=== PATIENT | male | born 1960 ===

== ENCOUNTER 2022-01-20 21:38 | Observation (INO) | payer BC ==
--- NOTE | 2022-01-20 23:53 | P.HP ---
Certification for Inpatient Patient admitted to: Inpatient With expected LOS: <2 Midnights Patient will require the following post-hospital care: None Practitioner: I am a practitioner with admitting privileges, knowledge of patient current condition, hospital course, and medical plan of care. Services: Services provided to patient in accordance with Admission requirements found in Title 42 Section 412.3 of the Code of Federal Regulations Patient History Date of Service: 01/21/22 Primary Care Provider: Dr. Galo Reason for admission: Cholelithiasis, Intractable N/V/D History of Present Illness: Patient is a 61 y/o M with PMH of HTN, HLD, NIDDM, and gout who was admitted as a transfer from [facility]. Patient presented to the ED with complaints of n/v/d and abdominal cramping that has waxed and wanes for 3 days. He reports it is aggravated by eating. Labs significant for WBC 14, magnesium 1.6, CT abd/pelv showed cholelithiasis with gallbladder distension without sign of cholecystitis. His symptoms improved with antiemetics and fluids but worsened as soon as he did PO challenge. [place] provider contacted Dr. Patel who agrees to consult on patient with hospitalist admitting. Upon arrival, patient is only complaining of nausea and diarrhea. I asked about his PCN allergy and he reports he had a rash when he was 6 years old and has not had any PCNs since. Allergies Penicillins Allergy (Intermediate, Verified 01/20/22 23:09) Rash Home medications list reviewed: Yes Home Medications: Allopurinol 100 mg PO DAILY 01/20/22 Amlodipine [Norvasc] 10 mg PO DAILY 01/20/22 Cyclobenzaprine [Flexeril] 10 mg PO TID PRN 01/20/22 Losartan/Hydrochlorothiazide [Losartan-Hctz 100-25 mg Tab] 1 tab PO DAILY 01/20/22 Metformin HCl 1,000 mg PO BID 01/20/22 Metoprolol Succinate 25 mg PO DAILY 01/20/22 Naproxen [Naprosyn] 500 mg PO BID 01/20/22 Pregabalin 100 mg PO TID 01/20/22 Rosuvastatin Calcium 5 mg PO BEDTIME 01/20/22 Semaglutide [Ozempic] 2 mg SQ EVERY 7TH DAY 01/20/22 Sertraline HCl 100 mg PO DAILY 01/20/22 - Past Medical/Surgical History Has patient received pneumonia vaccine in the past: Yes Diabetic: Yes -: DM II -: HTN -: GOUT -: HLD -: APPENDECTOMY -: BACK SURGERY -: RT FA SURGERY Psychosocial/ Personal History: Patient is . - Family History Father -: Heart disease, Stroke Mother -: Cancer - Social History Smoking Status: Never smoker Alcohol use: No CD- Drugs: No Caffeine use: Yes Place of Residence: Home Review of Systems Gastrointestinal: Nausea, Vomiting, Abdominal Pain, Diarrhea Physical Examination - Physical Exam General: Alert, In no apparent distress, Obese HEENT: Atraumatic, PERRLA, EOMI, Sclerae nonicteric Neck: Supple, 2+ carotid pulse no bruit, No LAD, Without JVD or thyroid abnormality Respiratory: Clear to auscultation bilaterally, Normal air movement Cardiovascular: Regular rate/rhythm, Normal S1 S2 Gastrointestinal: Normal bowel sounds, No guarding, Tenderness Musculoskeletal: No tenderness Integumentary: No rashes Neurological: Normal speech, Normal strength at 5/5 x4 extr, Normal tone, Normal affect Assessment and Plan - Problems (Diagnosis) (1) Cholelithiasis Current Visit: Yes Status: Acute Qualifiers: Cholelithiasis location: gallbladder Cholecystitis presence: without cholecystitis Biliary obstruction: without biliary obstruction Qualified Code(s): K80.20 - Calculus of gallbladder without cholecystitis without obstruction (2) Leukocytosis Current Visit: Yes Status: Acute Qualifiers: Leukocytosis type: unspecified Qualified Code(s): D72.829 - Elevated white blood cell count, unspecified (3) Intractable nausea and vomiting Current Visit: Yes Status: Acute (4) Diarrhea Current Visit: Yes Status: Acute Qualifiers: Diarrhea type: unspecified type Qualified Code(s): R19.7 - Diarrhea, unspecified (5) Type 2 diabetes mellitus Current Visit: Yes Status: Chronic Qualifiers: Diabetes mellitus longterm insulin use: without supervisor cutting and sewing room use Diabetes mellitus complication status: with hyperglycemia Qualified Code(s): E11.65 - Type 2 diabetes mellitus with hyperglycemia (6) Hypertension Current Visit: Yes Status: Chronic Qualifiers: Hypertension type: primary hypertension Qualified Code(s): I10 - Essential (primary) hypertension (7) Hypomagnesemia Current Visit: Yes Status: Acute - Plan -NPO at midnight. IVF and Zosyn. General surgery consulting. -CT abd/pelv from [place] showed cholelithiasis with GB distension without signs of cholecystitis. US pending. -Promethazine PRN nausea and fentanyl PRN pain -ACHS accu checks and mild sliding scale insulin -Reconcile and continue home medications -Monitor and replete electrolytes per protocol -SCDs for VTE ppx -Full code Discharge Plan: Home Plan to discharge in: 48 Hours - Advance Directives Does patient have a Living Will: No Does patient have a Durable POA for Healthcare: No - Code Status/Comfort Care Code Status Assessed: Yes (Full) Critical Care: No Time Spent Managing Pts Care (In Minutes): 50
[2022-01-21] MEDS ORDERED: FENTANYL CITR 100 MCG/2 ML IV PRN (00:02)
[2022-01-21] MEDS ORDERED: PROMETHAZINE INJ 25 MG/ML AMP IV PRN (00:02)
[2022-01-21] MEDS ORDERED: ACETAMINOPHEN 500 MG TAB PO PRN (00:02)
[2022-01-21] MEDS ORDERED: ONDANSETRON 4 MG/2 ML VIAL IV PRN (00:02)
[2022-01-21] MEDS ORDERED: LOPERAMIDE HCL 2 MG CAPSULE PO PRN (00:02)
[2022-01-21] MEDS ORDERED: DIPHENHYDRAMINE 50 MG/ML VIAL IV PRN (00:28)
[2022-01-21 00:56] VITALS: BMI 42.3
[2022-01-21] MEDS: Ringers Lactate 1,000 ML IV SCH ×2 (00:56→10:02)
[2022-01-21] MEDS: PIPER TAZO 3.375 GM in NA CHLORIDE 0.9% 100 ML IV SCH ×3 (00:56→17:57)
[2022-01-21 04:09] LABS: Absolute Lymphocytes (CBC) 2.4 K/uL (0.7-4.9); Hematocrit 42.2 % (39.6-49.0); Lymphocytes % 22.7 % (15.3-44.8); MCV 79.5 fL (80-100); MPV 8.1 fL (7.6-11.3); RBC Red Blood Cell Count 5.31 M/uL (4.33-5.43)
[2022-01-21 04:19] LABS: Albumin 2.9 g/dL (3.4-5.0); Bilirubin Total 0.4 mg/dL (0.2-1.0); Magnesium 1.8 mg/dL (1.8-2.4)
[2022-01-21 04:20] LABS: Thyroid Stimulating Hormone 6.25 uIU/mL (0.360-3.740)
[2022-01-21] MEDS ORDERED: MAGNESIUM SULFATE 1 gm IVPB 1 GM/100 ML BAG IV ONE (06:57)
[2022-01-21] MEDS: INSULIN -REGULAR HUMAN 50 UNIT/0.5 ML ML SQ SCH ×4 (07:30→21:13)
[2022-01-21] MEDS: ENOXAPARIN 40 MG/0.4 ML SQ SCH (08:08)
--- NOTE | 2022-01-21 10:46 | P.PN ---
Subjective Date of Service: 01/21/22 Primary Care Provider: Dr. Galo Chief Complaint: Cholelithiasis, Intractable N/V/D Patient denies any abdominal pain. No nausea or vomiting today. He is n.p.o. Physical Examination - Vital Signs Temperature: 97.7 F Blood Pressure: 118/64 Pulse: 85 Respirations: 16 Pulse Ox (%): 97 - Physical Exam General: Alert, In no apparent distress, Oriented x3 HEENT: Mucous membr. moist/pink Neck: JVD not distended Respiratory: Clear to auscultation bilaterally, Normal air movement Cardiovascular: No edema, Normal pulses, Regular rate/rhythm Gastrointestinal: Normal bowel sounds, Non-distended, Tenderness (Right upper quadrant) Musculoskeletal: No swelling Integumentary: No rashes Neurological: Normal strength at 5/5 x4 extr - Studies Laboratory Data (last 24 hrs) 01/21/22 03:10: Sodium 140, Potassium 4.0, BUN 29 H, Creatinine 1.25, Glucose 169 H, Magnesium 1.8, Total Bilirubin 0.4, AST 11 L, ALT 15, Alkaline Phosphatase 104, Triglycerides 150, Cholesterol 96, HDL Cholesterol 26 L, Cholesterol/HDL Ratio 3.69 01/21/22 03:10: WBC 10.7, Hgb 14.2, Hct 42.2, Plt Count 284 Assessment And Plan - Current Problems (Diagnosis) (1) Cholelithiasis Current Visit: Yes Status: Acute Qualifiers: Cholelithiasis location: gallbladder Cholecystitis presence: without cholecystitis Biliary obstruction: without biliary obstruction Qualified Code(s): K80.20 - Calculus of gallbladder without cholecystitis without obstruction (2) Intractable nausea and vomiting Current Visit: Yes Status: Acute (3) Hypertension Current Visit: Yes Status: Chronic Qualifiers: Hypertension type: primary hypertension Qualified Code(s): I10 - Essential (primary) hypertension (4) Type 2 diabetes mellitus Current Visit: Yes Status: Chronic Qualifiers: Diabetes mellitus mcc insulin use: without mcc use Diabetes mellitus complication status: with hyperglycemia Qualified Code(s): E11.65 - Type 2 diabetes mellitus with hyperglycemia - Plan Acute cholecystitis suspected. Patient also with distended gallbladder. General surgery consulted. Patient to be seen by Dr. Patel. Pain management as needed. IV Zosyn IV fluid Keep n.p.o. Insulin sliding scale for glucose management.
[2022-01-21] MEDS ORDERED: NA CHLORIDE 0.9% 1,000 ML ONE ×2 (11:07→14:02)
[2022-01-21] MEDS ORDERED: CELECOXIB 100 MG CAPSULE ONE (12:28)
[2022-01-21] MEDS ORDERED: ACETAMINOPHEN 500 MG TAB ONE (12:28)
[2022-01-21] MEDS ORDERED: propofoL 200 MG/20 ML VIAL IV ONE (12:33)
[2022-01-21] MEDS ORDERED: FENTANYL CITR 100 MCG/2 ML ONE ×2 (12:33→14:01)
[2022-01-21] MEDS ORDERED: LIDOCAINE 2% MPF 5 ML VIAL ONE (12:34)
[2022-01-21] MEDS ORDERED: ROCURONIUM 50 MG/5 ML VIAL IV ONE (12:34)
[2022-01-21] MEDS ORDERED: MIDAZOLAM HCL 2 MG/2 ML INJ ONE (12:35)
[2022-01-21] MEDS ORDERED: ONDANSETRON 4 MG/2 ML VIAL ONE (12:35)
[2022-01-21] MEDS ORDERED: KETOROLAC 30 MG/ML INJ ONE (12:35)
[2022-01-21] MEDS ORDERED: dexAMETHasone 4 MG/ML VIAL ONE (12:36)
--- NOTE | 2022-01-21 12:51 | P.CNS ---
Date of Consult: 01/21/22 PC: This 61-year-old male presented to an emergency room with severe right upper quadrant abdominal pain for diagnosis and treatment. HPC: Patient had sudden onset of right upper quadrant abdominal pain. He was at another facility where they were able to obtain an ultrasound. It showed he had a markedly distended gallbladder at that time. The patient was transferred to our facility for more definitive care. Patient been doing well until recently. However has been having right upper quadrant abdominal pain. Recently was put on some medication to help him control his weight. Has also been having a lot of nausea vomiting and diarrhea. PSHx: Previous back surgery, surgery for dropfoot PMHx: Hypertension, hyperlipidemia, borderline insulin diabetes Social Hx: States he is allergic to penicillin Sys R: No cough, wheeze, shortness of breath. No chest pain or palpitations. Has some minimal urinary symptoms consistent with enlarged prostate. He had a colonoscopy about 14 years ago. O/E: Awake alert vital signs are stable HEENT: Nonicteric Chest: Air entry equal bilaterally Abd: Has some right upper quadrant abdominal tenderness Arch [place]: Intact Data: Documented gallstones Impression: Cholecystitis with cholelithiasis, biliary colic Plan: I will taken the operating room for laparoscopic possible open cho lecystectomy with a cholangiogram. The risks of this procedure have been discussed. The possibility of bleeding, infection, injury to bile ducts blood vessels and intestines has been described. The possible need for an open and/or further surgeries and procedures was discussed. He understands and wants us to proceed.
[2022-01-21] MEDS ORDERED: GLYCOPYRROLATE 0.2 MG/ML SYR ONE (13:24)
--- NOTE | 2022-01-21 13:25 | RAD REPORT ---
EXAM DESCRIPTION: US - Abdomen Exam Limited - 01/21/2022 2:02 am CLINICAL HISTORY: The patient is 61 years old and is Male; cholelithiasis, leukocytosis TECHNIQUE: Real-time ultrasound of the right upper quadrant with image documentation. COMPARISON: No relevant prior studies available. FINDINGS: Gallbladder: Multiple gallstones in the gallbladder. No gallbladder wall thickening. No pericholecystic fluid. Common bile duct: Common bile duct is normal. No stones. No dilation. IMPRESSION: Multiple gallstones in the gallbladder. No gallbladder wall thickening. No pericholecyst ic fluid. Sonographic Huber's sign is reported as negative. Electronically signed by: Keith Silva MD 01/21/2022 1:20 AM CDT Due to temporary technical issues with the PACS/Fluency reporting system, reports are being signed by the in house radiologist without review as a courtesy to ensure prompt reporting. The interpreting r adiologist is fully responsible for the content of the report.
[2022-01-21] MEDS ORDERED: NEOSTIGMINE 1 MG/ML -10 ML VIAL ONE (13:40)
[2022-01-21] MEDS ORDERED: NS 0.9% VIAL 10 ML ONE (13:41)
[2022-01-21] MEDS ORDERED: EPHEDRINE SULF 50 MG/ML VIAL ONE (13:41)
[2022-01-21] MEDS: Ringers Lactate 1,000 ML IV ONE ×3 (14:01→15:12)
--- NOTE | 2022-01-21 15:43 | RAD REPORT ---
EXAM DESCRIPTION: RADCholangiogram Oper-Xray Or01/21/2022 3:35 pm CLINICAL HISTORY: Abdominal pain FINDINGS: The examination was performed by Dr. Patel. The cystic duct was cannulated and contrast administered. Contrast flowed into the duodenum. Fluoroscopy time 0.2 minutes. Five intraoperative fluoroscopic spo t images obtained.
--- NOTE | 2022-01-21 15:43 | P.OP ---
Preoperative diagnosis: Acute on chronic cholecystitis with cholelithiasis, biliary colic Postoperative diagnosis: The same Primary procedure: Laparoscopic cholecystectomy Secondary procedure: Intraoperative cholangiogram Estimated blood loss: Less than 30 cc Specimen: 1 gallbladder, numerous gallstones Operative Technique: The patient brought the operating room placed supine on the table. After the induction of adequate general endotracheal anesthesia, the area of the abdomen was prepped with a DuraPrep solution, and he was draped in usual aseptic manner. A subumbilical incision was made. This was brought down through the skin and subcutaneous tissue. The Visiport was used to enter the peritoneal cavity and created pneumoperitoneum to approximately 12 mmHg. Under direct vision a 5 mm trocar was placed in the upper midline, and 2 other 5 mm trochars on the right lateral side of the abdomen. It should be noted that on inspection of the right upper quadrant we could see a fatty liver. 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 There were numerous adhesions of the anterior surface of the liver to the peritoneum above. 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 Attention was turned towards the gallbladder itself. It was massively dilated. We attempted to aspirate the bile from it. It was actually very thin and fragile and tore literally on placing a grasper upon it. Gentle traction allowed us to elevate and expose out the cystic duct. The cystic duct having been identified a clip was placed between the gallbladder and the cystic duct. It was an opening was made into the cystic duct through which we obtained an intraoperative cholangiogram. The cholangiogram demonstrated good flow of contrast into the duodenum. On deflating the balloon which we could see the catheter is actually in the common bile duct and doing a pressure injection we eventually identified the cystic duct which we were secured in securely the catheter was removed with no injury to the, bile duct the distal portion of the cystic duct was then clipped and divided and the duct was fully transected the artery was identified clips were applied a similar way. As we now tried to dissect this enormously on thin-walled gallbladder from the liver bed, we did have ribs and tears and we were able to control the spillage of stones and hopefully retrieved and most of them. The gallbladder now was fully detached from the liver bed. It was placed into an Endo Catch. The stones that we had gathered were also placed on top of this. The gallbladder stones and all were now extracted through the umbilical trocar site. Attention was turned towards the right upper quadrant. This area was irrigated with a copious amount again with saline solution. Once again we were able to pull stones that had been spilled out from the gallbladder fossa. Having stacked them we were able to now place him by bringing another Endo Close into the peritoneal cavity and loading it up with these stones that had been she had from the gallbladder. The area was irrigated with a copious amount of a saline solution. We may not have retrieved 1 or 2 of the stones we will discuss this with the patient in the postoperative period however the arm buried in the fat and omentum and were not possible to be retrieved at this point a Braeden-Rain drain was placed into Morison's pouch brought out through the most lateral trocar site the umbilical trocar site after having removed the remaining stones and the Endo Close that we used to retrieve them was approximated using a absorbable suture. At this point the patient was returned to the neutral position on the OR table. The pneumoperitoneum was collapsed, the trochars removed, and ashvin were applied to the skin. At the end of the procedure he was in a stable condition was sent to the recovery room. Needle sponge instrument count were correct. No drains were placed. Complications: None Drain(s): BEREKET drain Transferred to: Recovery Room Condition: Good
[2022-01-21] MEDS: HYDROMORPHONE HCL 1 MG/ML INJ ONE ×5 (15:45→16:06)
[2022-01-21 16:09] VITALS: O2SAT 96
[2022-01-21] MEDS: HYDROCODONE/APAP 7.5/325 MG TAB PO PRN ×2 (16:31→21:13)
[2022-01-22] MEDS: Ringers Lactate 1,000 ML IV SCH ×3 (01:10→22:02)
[2022-01-22] MEDS: PIPER TAZO 3.375 GM in NA CHLORIDE 0.9% 100 ML IV SCH ×3 (01:11→18:34)
[2022-01-22 05:42] LABS: Absolute Lymphocytes (CBC) 1.8 K/uL (0.7-4.9); Hematocrit 34.3 % (39.6-49.0); Lymphocytes % 24.1 % (15.3-44.8); MCV 79.1 fL (80-100); MPV 7.6 fL (7.6-11.3); RBC Red Blood Cell Count 4.34 M/uL (4.33-5.43)
[2022-01-22 05:56] LABS: Potassium 3.9 mmol/L (3.5-5.1)
[2022-01-22] MEDS: INSULIN -REGULAR HUMAN 50 UNIT/0.5 ML ML SQ SCH ×4 (07:30→20:41)
[2022-01-22] MEDS ORDERED: POTASSIUM CL SA 10 MEQ TAB PO ONE (09:00)
[2022-01-22] MEDS: ENOXAPARIN 40 MG/0.4 ML SQ SCH (10:00)
[2022-01-22] MEDS: HYDROCODONE/APAP 7.5/325 MG TAB PO PRN (10:33)
[2022-01-22 11:44] LABS: Urine Appearance Clear (Clear); Urine Bilirubin Negative (Negative); Urine Blood Negative (Negative); Urine Color Yellow (Yellow); Urine Glucose Negative (Negative); Urine Protein Negative (Negative); Urine Specific Gravity 1.015 (1.005-1.030); Urine Urobilinogen 0.2 mg/dL (0.2-1.0)
[2022-01-22 11:51] LABS: Urine Microscopic Reflex NO UMIC
--- NOTE | 2022-01-22 13:55 | P.PN ---
Date of Service: 01/22/22 S: Patient feels better than yesterday. No specific complaints. Has some concerns about his BEREKET and the drainage. O: Vital signs are stable, abdomen is soft. Has some serosanguineous drainage coming from BEREKET as expected. [We did a a lot of irrigation with saline at the time of surgery. There is a considerable residual that we will be present for the next 24 hours.] A: Patient doing very well status post laparoscopic cholecystectomy with cholangiogram. P: We will continue current therapy. Keep him 1 more day. Anticipate discharge in a.m. if the BEREKET drain has less output. I have explained this to the patient. He is comfortable with these decisions. He will try to get up and ambulate more today. Also continue with his incentive spirometry.
--- NOTE | 2022-01-22 14:49 | P.PN ---
Subjective Date of Service: 01/22/22 Primary Care Provider: Dr. Galo Chief Complaint: Cholelithiasis, Intractable N/V/D Status post lap cholecystectomy yesterday. Patient noted to have markedly distended gallbladder. He currently has no complaint and tolerating regular diet. Patient complaining of increased urinary frequency. Physical Examination - Vital Signs Temperature: 98.9 F Blood Pressure: 138/65 Pulse: 76 Respirations: 19 Pulse Ox (%): 95 - Physical Exam General: Alert, In no apparent distress, Oriented x3 HEENT: Mucous membr. moist/pink Neck: JVD not distended Respiratory: Clear to auscultation bilaterally, Normal air movement Cardiovascular: No edema, Regular rate/rhythm, Normal S1 S2 Gastrointestinal: Normal bowel sounds, Soft and benign, Non-distended, Other (BEREKET drain-left mid abdomen draining serosanguineous fluid.) Musculoskeletal: No swelling Integumentary: No rashes Neurological: Normal speech, Normal strength at 5/5 x4 extr - Studies Laboratory Data (last 24 hrs) 01/22/22 05:07: Magnesium 2.1 01/22/22 05:07: Sodium 137, Potassium 3.9, BUN 17, Creatinine 1.04, Glucose 186 H 01/22/22 05:07: WBC 7.4 D, Hgb 11.4 L D, Hct 34.3 L D, Plt Count 188 D Assessment And Plan - Current Problems (Diagnosis) (1) Cholelithiasis Current Visit: Yes Status: Acute Qualifiers: Cholelithiasis location: gallbladder Cholecystitis presence: without cholecystitis Biliary obstruction: without biliary obstruction Qualified Code(s): K80.20 - Calculus of gallbladder without cholecystitis without obstruction (2) Intractable nausea and vomiting Current Visit: Yes Status: Acute (3) Hypertension Current Visit: Yes Status: Chronic Qualifiers: Hypertension type: primary hypertension Qualified Code(s): I10 - Essential (primary) hypertension (4) Type 2 diabetes mellitus Current Visit: Yes Status: Chronic Qualifiers: Diabetes mellitus machine long goods helper insulin use: without machine long goods helper use Diabetes mellitus complication status: with hyperglycemia Qualified Code(s): E11.65 - Type 2 diabetes mellitus with hyperglycemia - Plan Status post lap cholecystectomy. Patient noted to have a markedly distended gallbladder. Intra-Op cholangiography unremarkable Pain management as needed. Continue IV Zosyn Diet as tolerated Insulin sliding scale for glucose management. General surgery-Dr. Patel is following. UA is negative for UTI.
[2022-01-23] MEDS: PIPER TAZO 3.375 GM in NA CHLORIDE 0.9% 100 ML IV SCH ×2 (01:21→07:57)
[2022-01-23] MEDS: Ringers Lactate 1,000 ML IV SCH ×2 (02:02→07:56)
[2022-01-23 04:38] LABS: Absolute Lymphocytes (CBC) 3.6 K/uL (0.7-4.9); Hematocrit 32.6 % (39.6-49.0); Lymphocytes % 42.5 % (15.3-44.8); MCV 78.9 fL (80-100); MPV 7.5 fL (7.6-11.3); RBC Red Blood Cell Count 4.13 M/uL (4.33-5.43)
[2022-01-23 04:50] LABS: Potassium 3.5 mmol/L (3.5-5.1)
[2022-01-23] MEDS: INSULIN -REGULAR HUMAN 50 UNIT/0.5 ML ML SQ SCH ×2 (07:30→11:30)
[2022-01-23] MEDS: ENOXAPARIN 40 MG/0.4 ML SQ SCH (07:57)
[2022-01-23] MEDS ORDERED: POTASSIUM CL SA 10 MEQ TAB PO ONE (09:00)
[2022-01-23 13:58] VITALS: BP 153/73; TEMP 97
--- NOTE | 2022-01-23 14:21 | P.PN ---
Date of Service: 01/23/22 S: Patient doing well, has been up ambulating, tolerating a diet. Anxious to go home. O: Vital signs are stable, minimal after BEREKET drain. A: Braeden-Rain drain was removed. Incisions are clean. P: DC IV, DC home. I have called in a prescription for some Levaquin for 5 days for him as well as some hydrocodone for pain. He will follow-up with me next Wednesday in my office. Should he have any questions or problems, he will return to the emergency room or contact me.
--- NOTE | 2022-01-23 14:50 | P.DS ---
Admission Date: 01/20/22 Discharge Date: 01/23/22 Primary Care Provider: Dr. Galo Disposition: ROUTINE DISCHARGE Discharge Condition: FAIR Reason for Admission: Cholelithiasis, Intractable N/V/D - Problems (1) Cholelithiasis Current Visit: Yes Status: Acute Qualifiers: Cholelithiasis location: gallbladder Cholecystitis presence: without cholecystitis Biliary obstruction: without biliary obstruction Qualified Code(s): K80.20 - Calculus of gallbladder without cholecystitis without obstruction (2) Intractable nausea and vomiting Current Visit: Yes Status: Acute (3) Hypertension Current Visit: Yes Status: Chronic Qualifiers: Hypertension type: primary hypertension Qualified Code(s): I10 - Essential (primary) hypertension (4) Type 2 diabetes mellitus Current Visit: Yes Status: Chronic Qualifiers: Diabetes mellitus beauty consultant insulin use: without snf use Diabetes mellitus complication status: with hyperglycemia Qualified Code(s): E11.65 - Type 2 diabetes mellitus with hyperglycemia Brief History of Present Illness: Patient is a 61 y/o M with PMH of HTN, HLD, NIDDM, and gout who was admitted as a transfer from [facility]. Patient presented to the ED with complaints of n/v/d and abdominal cramping that has waxed and wanes for 3 days. Labs sig nificant for WBC 14, magnesium 1.6, CT abd/pelv showed cholelithiasis with gallbladder distension without sign of cholecystitis. His symptoms improved with antiemetics and fluids but worsened as soon as he did PO challenge. [place] provider contacted Dr. Patel who agreed to consult on patient with hospitalist admitting. Patient transferred here to be admitted for further management. Hospital Course: Patient admitted to the medical floor and started on IV Zosyn. Patient tolerated the Zosyn despite a remote report of allergy to penicillin. He was seen by general surgery-Dr. Patel and lap cholecystectomy performed. Patient noted to have a markedly distended gallbladder containing multiple stones. Stones were extracted and cholecystectomy performed. Per report, some stones spilled into the peritoneal cavity and were not removed as much as possible. Intra-Op cholangiography unremarkable. BEREKET drain placed which was draining serosanguineous fluid. Continue with IV Zosyn for 1 more day postop. Patient tolerated his meals. He denies any pain today. Insulin sliding scale used for glucose management. UA is negative for UTI. Patient deemed stable for discharge per Dr. Patel. BEREKET drain removed. Patient was prescribed oral antibiotic-Levaquin and Flagyl. Also prescribed [place] as needed for pain. Other home medications resumed on discharge. Vital Signs/Physical Exam: Temp Pulse Resp BP Pulse Ox 97.0 F 62 18 153/73 H 100 01/23/22 12:00 01/23/22 12:00 01/23/22 12:00 01/23/22 12:00 01/23/22 12:00 General: Alert, In no apparent distress, Oriented x3 HEENT: Mucous membr. moist/pink Neck: Supple, JVD not distended Respiratory: Clear to auscultation bilaterally, Normal air movement Cardiovascular: No edema, Regular rate/rhythm, Normal S1 S2, No murmurs Gastrointestinal: Normal bowel sounds, Soft and benign, Non-distended, No tenderness Musculoskeletal: No swelling Integumentary: No rashes Neurological: Normal strength at 5/5 x4 extr Laboratory Data at Discharge: WBC 8.4 K/uL (4.3-10.9) 01/23/22 03:57 Hgb 11.1 g/dL (13.6-17.9) L 01/23/22 03:57 Hct 32.6 % (39.6-49.0) L 01/23/22 03:57 Plt Count 159 K/uL (152-406) 01/23/22 03:57 Sodium 139 mmol/L (136-145) 01/23/22 03:57 Potassium 3.5 mmol/L (3.5-5.1) 01/23/22 03:57 BUN 11 mg/dL (7-18) 01/23/22 03:57 Creatinine 0.76 mg/dL (0.55-1.3) 01/23/22 03:57 Glucose 137 mg/dL (74-106) H 01/23/22 03:57 Magnesium 2.1 mg/dL (1.8-2.4) 01/22/22 05:07 Total Bilirubin 0.4 mg/dL (0.2-1.0) 01/21/22 03:10 AST 11 U/L (15-37) L 01/21/22 03:10 ALT 15 U/L (12-78) 01/21/22 03:10 Alkaline Phosphatase 104 U/L (45-117) 01/21/22 03:10 Triglycerides 150 mg/dL (<150) 01/21/22 03:10 Cholesterol 96 mg/dL (<200) 01/21/22 03:10 HDL Cholesterol 26 mg/dL (40-60) L 01/21/22 03:10 Cholesterol/HDL Ratio 3.69 01/21/22 03:10 Home Medications: Allopurinol 100 mg PO DAILY 01/20/22 Amlodipine [Norvasc*] 10 mg PO DAILY 01/20/22 Cyclobenzaprine [Flexeril*] 10 mg PO TID PRN 01/20/22 Losartan/Hydrochlorothiazide [Losartan-Hctz 100-25 mg Tab] 1 tab PO DAILY 01/20/22 Metformin HCl 1,000 mg PO BID 01/20/22 Metoprolol Succinate 25 mg PO DAILY 01/20/22 Naproxen [Naprosyn] 500 mg PO BID 01/20/22 Pregabalin 100 mg PO TID 01/20/22 Rosuvastatin Calcium 5 mg PO BEDTIME 01/20/22 Semaglutide [Ozempic] 2 mg SQ EVERY 7TH DAY 01/20/22 Sertraline HCl 100 mg PO DAILY 01/20/22 Hydrocodone 7.5/APAP 325 [[place] 7.5/325 mg*] 1 tab PO Q4H PRN #15 tab 01/23/22 metroNIDAZOLE [Flagyl] 500 mg PO Q8H #21 tablet 01/23/22 New Medications: metroNIDAZOLE [Flagyl] 500 mg PO Q8H #21 tablet Hydrocodone 7.5/APAP 325 [[place] 7.5/325 mg*] 1 tab PO Q4H PRN #15 tab PRN Reason: Pain Scale 5-7 (Moderate) Diet: AHA Activity: Ad luis Followup: Te Patel MD [ACTIVE - CAN ADMIT] - 1 Week Time spent managing pt's care (in minutes): 36
== END 2022-01-23 15:26 | disposition home or self-care (01) ==
LOC: 2ND 23:00 → INTOOBSV 23:00
PROVIDERS: ADMIT Internal Medicine; ATTEND Internal Medicine
PROC: BF00YZZ Plain Radiography of Bile Ducts using Other Contrast (ICD-10-PCS; 2022-01-21)
PROC: 0FT44ZZ Resection of Gallbladder, Percutaneous Endoscopic Approach (ICD-10-PCS; principal; 2022-01-21 12:15)
DX: K80.12 Calculus of gallbladder with acute and chronic cholecystitis without obstruction (principal); I10 Essential (primary) hypertension; E11.65 Type 2 diabetes mellitus with hyperglycemia; E83.42 Hypomagnesemia; R11.2 Nausea with vomiting, unspecified; R19.7 Diarrhea, unspecified; E78.5 Hyperlipidemia, unspecified; M10.9 Gout, unspecified; Z79.84 Long term (current) use of oral hypoglycemic drugs; Z79.899 Other long term (current) drug therapy; Z88.0 Allergy status to penicillin; Z82.49 Family history of ischemic heart disease and other diseases of the circulatory system; Z82.3 Family history of stroke; Z80.9 Family history of malignant neoplasm, unspecified
CPT/HCPCS: 85025 ×3; 80048 ×2; 36415 ×2; 83735 ×2; 80061; 82947 ×9; 88304; 84443; 81003; 84439; 80053; 74300; 76705; 94010 ×2; 47563; J2704; J1100; J2710; J2550; J1815 ×2; J2543 ×8; J1650 ×3; J2250; J3010 ×2; J3475; J1170 ×2; J7120 ×6; J7030; J2405 ×2; G0378; G0379